=== PATIENT | female | born 1950 | race Two or more races ===

== ENCOUNTER 2019-04-20 18:39 | Emergency (ER) | payer MEDICARE ==
[~2019-04-20] VITALS: Ht 160 cm; Wt 81.6 kg
[2019-04-20 18:54] VITALS: BP 189/96
--- NOTE | 2019-04-20 18:55 | NUR ---
ED Nurse Note: Patient ambulated to ER from home due to animal bite. her cat bit her on Rt posterior calf 2 days ago. no bleeding or drainage but swelling and redness and scab present at this time. pt aao x4 and ambulatory. calm and cooperative.
--- NOTE | 2019-04-20 19:02 | NUR ---
HAND-OFF: Report given to ROSAS Peace. no orders to carry at this moment. [facility] rabies control program faxed by Cory Alvarez RN
--- NOTE | 2019-04-20 19:07 | NUR ---
ED Nurse Note: received report from Krys PLUMMER RN
--- NOTE | 2019-04-20 19:14 | Emergency Room Report ---
History of Present Illness General Chief Complaint: Skin Rash/Abscess Source: Patient Present Illness HPI 68-year-old female with no significant past medical history here complaining of pain and swelling right callus after being bit by her cat 2 days ago. Patient is rating the pain 5 out of 10 without radiation denying tingling numbness. Denies fever and chills and pus drainage from the site. Denies chest pain, shortness of breath, nausea vomiting, abdominal pain, palpitation. Patient is not up-to-date with her tetanus shot. The site of bite is infected and warm to touch however superficial. No sensory or motor deficits noted. Patient has not taken medication for symptom relief. Allergies: Coded Allergies: CEPHALEXIN (Verified Allergy, Unknown, Rash, 04/20/19) Patient History Past Medical History: see triage record Past Surgical History: unable to obtain Pertinent Family History: unable to obtain Now: No Immunizations: UTD - tdap today Reviewed Nursing Documentation: PMH: Agreed; PSxH: Agreed Nursing Documentation-PMH Past Medical History: No Stated History Review of Systems All Other Systems: negative except mentioned in HPI Physical Exam Vital Signs Date Time Temp Pulse Resp B/P (MAP) Pulse Ox O2 Delivery O2 Flow Rate FiO2 04/20/19 18:44 98.8 81 25 189/96 (127) 95 Room Air Sp02 EP Interpretation: reviewed, normal General Appearance: normal inspection, well appearing, no apparent distress, alert, GCS 15 Head: normocephalic, atraumatic Eyes: bilateral eye normal inspection, bilateral eye PERRL ENT: normal ENT inspection, hearing grossly normal, normal pharynx Neck: normal inspection, full range of motion, supple, thyroid normal Respiratory: normal inspection, chest non-tender, lungs clear, normal breath sounds, no rhonchi, no wheezing Cardiovascular #1: normal inspection, regular rate, rhythm, no murmur Cardiovascular #2: 2+ dorsalis pedis (R), 2+ dorsalis pedis (L) Gastrointestinal: normal inspection, non tender, soft, no mass, no organomegaly , no guarding Genitourinary: no CVA tenderness Musculoskeletal: normal inspection, back normal, no calf tenderness Neurologic: normal inspection, alert, oriented x3, responsive Psychiatric: normal inspection, judgement/insight normal Skin: other - Cellulitis of right callus secondary to puncture wound caused by cat bite Lymphatic: normal inspection, no adenopathy Medical Decision Making PA Attestation All diagnoses and treatment plans were reviewed and discussed with my supervising physician Dr. Rubio Diagnostic Impression: Primary Impression: Cat bite of right lower leg Additional Impression: Cellulitis of right lower leg ER Course 68-year-old female with no significant past medical history here complaining of pain and swelling right callus after being bit by her cat 2 days ago. Patient is rating the pain 5 out of 10 without radiation denying tingling numbness. Denies fever and chills and pus drainage from the site. Denies chest pain, shortness of breath, nausea vomiting, abdominal pain, palpitation. Patient is not up-to-date with her tetanus shot. The site of bite is infected and warm to touch however superficial. No sensory or motor deficits noted. Patient has not taken medication for symptom relief. Ddx considered but are not limited to : Cellulitis, DVT, superficial infection, abscess Vital signs: are WNL, pt. is afebrile H&PE are most consistent with: Cellulitis of right lower leg secondary to cat bite ORDERS: Right tib-fib x-ray, Tdap, clindamycin, ibuprofen ED INTERVENTIONS: Tdap, wound clean and dress DISCHARGE: At this time pt. is stable for d/c to home. Will provide printed patient care instructions, and any necessary prescriptions. Care plan and follow up instructions have been discussed with the patient prior to discharge. Advised the patient to take medication for eventual emergency room also follow -up with her primary care provider Other X-Ray Diagnostic Results Other X-Ray Diagnostic Results : X-Ray ordered: R tib fib # of Views/Limited Vs Complete: 2 View Indication: Pain EP Interpretation: Yes PA Xray: Interpretation reviewed, by supervising MD, and agrees with findings. Interpretation: no dislocation, no soft tissue swelling, no fractures, other - no fb Impression: No acute disease Electronically Signed by: Hanna Sesay PA-C Last Vital Signs Date Time Temp Pulse Resp B/P (MAP) Pulse Ox O2 Delivery O2 Flow Rate FiO2 04/20/19 18:54 98.8 82 25 189/96 95 Room Air Disposition: HOME, SELF-CARE Condition: Stable Scripts Ibuprofen* (MOTRIN*) 600 Mg Tablet 600 MG ORAL Q8H PRN for For Pain, #30 TAB 0 Refills Prov: Hanna Martinez 04/20/19 Clindamycin Hcl (CLINDAMYCIN HCL) 300 Mg Capsule 300 MG ORAL FOUR TIMES A DAY for 7 Days, #28 CAP Prov: Hanna Martinez 04/20/19 Patient Instructions: Animal Bite, [id number], Cellulitis, [id number] Additional Instructions: Take medication as directed follow-up with a primary care provider and return to the emergency room. Hanna Martinez Apr 20, 2019 19:14
[2019-04-20] MEDS ORDERED: Tetanus/Diptheria/Pertussis IM ONE (19:15)
[2019-04-20] MEDS ORDERED: CLINDAMYCIN HC300 MG ORAL (19:17)
[2019-04-20] MEDS ORDERED: IBUPROFEN600 MG ORAL (19:17)
[2019-04-20 19:45] VITALS: BP 130/71
--- NOTE | 2019-04-20 19:45 | NUR ---
ED Nurse Note: Pt cleared by health care Provider for discharge. DC instructions/prescription was given and explained to pt and verbalized understanding of teachings. All medical deviecs such as ID band removed. Pt is AAO x4, ambulatory and left with all personal belongings.
--- NOTE | 2019-04-20 20:38 | Diagnostic Imaging Report ---
EXAM: XR Right Tibia and Fibula, 2 Views CLINICAL HISTORY: FB TECHNIQUE: Frontal and lateral views of the right tibia and fibula. COMPARISON: No relevant prior studies available. FINDINGS: Bones/joints: Unremarkable. No acute fracture. No dislocation. Soft tissues: Suspect mild Diffuse soft tissue swelling in distal lower leg. No radiopaque foreign body. IMPRESSION: No radiopaque foreign body.
== END 2019-04-20 19:45 | disposition home or self-care (01) ==
LOC: EMR 19:19
DX: S81.851A Open bite, right lower leg, initial encounter (principal); L03.115 Cellulitis of right lower limb; Z88.8 Allergy status to other drugs, medicaments and biological substances; W55.01XA Bitten by cat, initial encounter; Y92.9 Unspecified place or not applicable; Z23 Encounter for immunization
CPT/HCPCS: 90471; 90715; 99283